=== PATIENT | female | born 1990 | race Two or more races ===

== ENCOUNTER 2017-10-24 06:21 | Inpatient (IN) | payer OTHER ==
[~2017-10-24] VITALS: Ht 152.4 cm; Wt 68.6 kg
[2017-10-24] MEDS ORDERED: LACTATED RINGERS 1,000 ML IV SCH (06:27)
[2017-10-24] MEDS ORDERED: OXYTOCIN 30U/ 0.9% NaCL 500ML 500 ML IV ONE (06:27)
[2017-10-24] MEDS ORDERED: D5%-LACTATED RINGERS 1,000 ML IV SCH (06:27)
[2017-10-24] MEDS ORDERED: TERBUTALINE 1 MG/ML, 1ML IVPush PRN ×2 (06:30)
[2017-10-24] MEDS ORDERED: TERBUTALINE 1 MG/ML, 1ML SQ PRN (06:30)
[2017-10-24] MEDS ORDERED: CALCIUM CARBONATE 500 MG TAB.CHEW PO PRN ×2 (06:30→08:30)
[2017-10-24] MEDS ORDERED: FENTANYL PF 100 MCG/2ML IVPush PRN (06:30)
[2017-10-24] MEDS ORDERED: ONDANSETRON 2MG/ML, 2ML IVPush PRN (06:30)
[2017-10-24] MEDS ORDERED: FENTANYL PF 100 MCG/2ML IV PRN (06:30)
[2017-10-24] MEDS ORDERED: NEWBORN KIT ONE (06:32)
[2017-10-24] MEDS ORDERED: MISOPROSTOL 200 MCG TABLET ONE (06:32)
[2017-10-24] MEDS ORDERED: LIDOCAINE 1%, 20ML ONE (06:32)
[2017-10-24] MEDS ORDERED: OXYTOCIN 30U/ 0.9% NaCL 500ML 500 ML ONE (06:32)
[2017-10-24] MEDS ORDERED: FENTANYL PF 100 MCG/2ML ONE (06:47)
[2017-10-24 07:09] LABS: BASOPHILS # (AUTO) 0.05 x10^3/uL (0-0.1); BASOPHILS % (AUTO) 0 % (0-1); EOSINOPHILS # (AUTO) 0.05 x10^3/uL (0-0.4); EOSINOPHILS % (AUTO) 0 % (1-7); LYMPHOCYTES # (AUTO) 3.01 x10^3/uL (1-3.4); LYMPHOCYTES % (AUTO) 25 % (22-44); MD NO; MEAN CORPUSCULAR HGB CONC 34.1 g/dL (32.4-35.8); MEAN CORPUSCULAR VOLUME 87.8 fL (80-100); MONOCYTES # (AUTO) 0.89 x10^3/uL (0.2-0.8); MONOCYTES % (AUTO) 8 % (2-9); NEUTROPHILS # (AUTO) 7.86 x10^3/uL (1.8-6.8); NEUTROPHILS % (AUTO) 66 % (42-75); PLATELET COUNT 208 x10^3/uL (130-400); RED BLOOD COUNT 4.74 x10^6/uL (3.82-5.3); RED CELL DISTRIBUTION WIDTH 13.7 % (9.6-15.2)
[2017-10-24] MEDS ORDERED: LIDOCAINE-MPF 2% ,5ML ONE (07:28)
[2017-10-24] MEDS ORDERED: FENTANYL/BUPIV./NS/PF 250 ML EPIDCONT ONE (07:28)
[2017-10-24] MEDS ORDERED: FENTANYL/BUPIV./NS/PF 250 ML EPIDCONT SCH (07:59)
[2017-10-24] MEDS ORDERED: LACTATED RINGERS 1,000 ML IVBOLUS PRN (08:00)
[2017-10-24] MEDS ORDERED: EPHEDRINE 50 MG/ML, 1ML IVPush PRN (08:00)
[2017-10-24] MEDS ORDERED: NALOXONE 0.4 MG/ML, 1ML IVPush PRN (08:00)
[2017-10-24] MEDS: OXYTOCIN 30U/ 0.9% NaCL 500ML 500 ML IV SCH ×2 (08:21→18:21)
[2017-10-24] MEDS ORDERED: CARBOPROST TROMETHAMINE 250 MCG/ML, 1ML IM PRN (08:30)
[2017-10-24] MEDS ORDERED: MISOPROSTOL 200 MCG TABLET PR PRN (08:30)
[2017-10-24] MEDS ORDERED: ONDANSETRON 2MG/ML, 2ML IV PRN (08:30)
[2017-10-24] MEDS ORDERED: METHYLERGONOVINE 0.2 MG/ML IM PRN (08:30)
[2017-10-24] MEDS ORDERED: RHOGAM FROM BLOOD BANK 1 NOTE EA IM/IV ONE (08:30)
[2017-10-24] MEDS ORDERED: ACETAMINOPHEN 325 MG TABLET PO PRN (08:30)
[2017-10-24] MEDS ORDERED: HYDROcodone/APAP 5/325 TABLET PO PRN ×2 (08:30)
[2017-10-24] MEDS: LACTATED RINGERS 1,000 ML IV SCH ×2 (09:00→17:00)
[2017-10-24] MEDS: PRENATAL VIT/IRON/FA 1 EACH TABLET PO SCH (09:00)
[2017-10-24 10:15] VITALS: BP 121/80
[2017-10-24] MEDS: IBUPROFEN 600 MG TABLET PO PRN ×2 (12:21→20:03)
[2017-10-24 13:38] VITALS: BP 121/72
[2017-10-24 16:16] LABS: BASOPHILS # (AUTO) 0.09 x10^3/uL (0-0.1); BASOPHILS % (AUTO) 1 % (0-1); EOSINOPHILS # (AUTO) 0.01 x10^3/uL (0-0.4); EOSINOPHILS % (AUTO) 0 % (1-7); LYMPHOCYTES # (AUTO) 1.82 x10^3/uL (1-3.4); LYMPHOCYTES % (AUTO) 11 % (22-44); MD NO; MEAN CORPUSCULAR HGB CONC 33.8 g/dL (32.4-35.8); MEAN CORPUSCULAR VOLUME 88.9 fL (80-100); MONOCYTES # (AUTO) 0.97 x10^3/uL (0.2-0.8); MONOCYTES % (AUTO) 6 % (2-9); NEUTROPHILS # (AUTO) 13.41 x10^3/uL (1.8-6.8); NEUTROPHILS % (AUTO) 82 % (42-75); PLATELET COUNT 201 x10^3/uL (130-400); RED BLOOD COUNT 4.42 x10^6/uL (3.82-5.3); RED CELL DISTRIBUTION WIDTH 13.6 % (9.6-15.2)
[2017-10-24 17:50] VITALS: BP 130/93
[2017-10-24 20:00] VITALS: BP 118/84
[2017-10-24] MEDS: DOCUSATE 100 MG CAPSULE PO PRN (20:03)
[2017-10-25 00:01] VITALS: BP 106/67
[2017-10-25] MEDS: LACTATED RINGERS 1,000 ML IV SCH ×2 (01:00→02:16)
[2017-10-25] MEDS: IBUPROFEN 600 MG TABLET PO PRN ×2 (02:20→07:54)
[2017-10-25] MEDS: OXYTOCIN 30U/ 0.9% NaCL 500ML 500 ML IV SCH ×2 (04:21→05:50)
[2017-10-25 06:45] VITALS: BP 117/84
[2017-10-25] MEDS: DOCUSATE 100 MG CAPSULE PO PRN (07:54)
[2017-10-25] MEDS: PRENATAL VIT/IRON/FA 1 EACH TABLET PO SCH (07:54)
[2017-10-25] MEDS ORDERED: IBUP-1222 PO (10:14)
[2017-10-25] MEDS ORDERED: SENN-1 PO (10:15)
== END 2017-10-25 10:50 | disposition home or self-care (01) | DRG 775 ==
LOC: LDOP 06:21 → LDIP 06:29 → 2NW 10:22
PROVIDERS: ADMIT Obstetrics & Gynecology; ATTEND Obstetrics & Gynecology
PROC: 10E0XZZ Delivery of Products of Conception, External Approach (ICD-10-PCS; principal; 2017-10-24)
PROC: 3E0R3BZ Introduction of Anesthetic Agent into Spinal Canal, Percutaneous Approach (ICD-10-PCS; 2017-10-24)
PROC: 00HU33Z Insertion of Infusion Device into Spinal Canal, Percutaneous Approach (ICD-10-PCS; 2017-10-24)
PROC: 30233S1 Transfusion of Nonautologous Globulin into Peripheral Vein, Percutaneous Approach (ICD-10-PCS; 2017-10-24)
DX: O69.1XX0 Labor and delivery complicated by cord around neck, with compression, not applicable or unspecified (principal); O77.0 Labor and delivery complicated by meconium in amniotic fluid; Z37.0 Single live birth; Z3A.40 40 weeks gestation of pregnancy
CPT/HCPCS: 36415; 82803; 85025; 85461; 86850; 86870; 86900; 86922; 86923; J2790; J3010; J7120

== ENCOUNTER 2019-10-05 20:22 | Outpatient (CLI) | payer BC ==
[~2019-10-05 20:22] MED LIST: IBUP-1222 PO; SENN-92 PO
[2019-10-05 21:22] LABS: MICROSCOPIC INDICATED
== END 2019-10-05 23:45 | disposition home or self-care (01) ==
LOC: LDOP 20:22 → LDIP 22:00 → UNDOADMOB 22:00 → UNDODISOB 23:45
PROVIDERS: ATTEND Obstetrics & Gynecology
DX: Z34.92 Encounter for supervision of normal pregnancy, unspecified, second trimester (principal); Z3A.26 26 weeks gestation of pregnancy
CPT/HCPCS: 36415; 76815; 81001; 85460; 87086; 99211; G0378; G0463

== ENCOUNTER 2019-12-18 01:34 | Inpatient (IN) | payer BC ==
[~2019-12-18] VITALS: Ht 165.1 cm; Wt 70.0 kg
[2019-12-18 02:13] LABS: ALANINE AMINOTRANSFERASE 126 U/L (12-78); ALBUMIN 2.6 g/dL (3.4-5.0); ANION GAP 10 mmol/L (5-15); BILIRUBIN, DIRECT 0.2 mg/dL (0.1-0.2); CALCIUM 8.8 mg/dL (8.5-10.1); CHLORIDE 111 mmol/L (98-107); CREATININE 0.95 mg/dL (0.55-1.02)
[2019-12-18 02:14] LABS: BASOPHILS # (AUTO) 0.04 x10^3/uL (0-0.1); BASOPHILS % (AUTO) 0 % (0-1); EOSINOPHILS # (AUTO) 0.06 x10^3/uL (0-0.4); EOSINOPHILS % (AUTO) 1 % (1-7); LYMPHOCYTES # (AUTO) 2.15 x10^3/uL (1-3.4); LYMPHOCYTES % (AUTO) 16 % (22-44); MD SCAN; MEAN CORPUSCULAR HEMOGLOBIN 30.1 pg (27.0-34.8); MEAN CORPUSCULAR HGB CONC 34.5 g/dL (32.4-35.8); MEAN CORPUSCULAR VOLUME 87.4 fL (80-100); MEAN PLATELET VOLUME 10.1 fL (7.4-10.4); MONOCYTES % (AUTO) 6 % (2-9); NEUTROPHILS # (AUTO) 10.01 x10^3/uL (1.8-6.8); NEUTROPHILS % (AUTO) 77 % (42-75); PLATELET COUNT 61 x10^3/uL (130-400); RED BLOOD COUNT 4.56 x10^6/uL (3.82-5.3); RED CELL DISTRIBUTION WIDTH 13.9 % (9.6-15.2)
[2019-12-18 02:15] LABS: ALKALINE PHOSPHATASE 223 U/L (45-117); BILIRUBIN,TOTAL 0.5 mg/dL (0.2-1.0); TOTAL PROTEIN 6.8 g/dL (6.4-8.2)
[2019-12-18] MEDS ORDERED: LABETALOL 5MG/ML, 20ML ONE (02:18)
[2019-12-18] MEDS ORDERED: LACTATED RINGERS 1,000 ML IV SCH ×2 (02:28→19:00)
[2019-12-18] MEDS ORDERED: OXYTOCIN 30U/ 0.9% NaCL 500ML 500 ML IV ONE (02:28)
[2019-12-18] MEDS ORDERED: D5%-LACTATED RINGERS 1,000 ML IV SCH (02:28)
[2019-12-18] MEDS ORDERED: ONDANSETRON 2MG/ML, 2ML IVPush PRN (02:30)
[2019-12-18] MEDS ORDERED: LABETALOL 200 MG TABLET PO SCH (02:30)
[2019-12-18] MEDS ORDERED: LABETALOL 5MG/ML, 20ML IVPush ONE (02:30)
[2019-12-18] MEDS ORDERED: CALCIUM CARBONATE 500 MG TAB.CHEW PO PRN ×2 (02:30→16:00)
[2019-12-18] MEDS ORDERED: FENTANYL PF 100 MCG/2ML IVPush PRN (02:30)
[2019-12-18] MEDS ORDERED: TERBUTALINE 1 MG/ML, 1ML IVPush PRN (02:30)
[2019-12-18] MEDS ORDERED: FENTANYL PF 100 MCG/2ML IV PRN (02:30)
[2019-12-18] MEDS ORDERED: TERBUTALINE 1 MG/ML, 1ML SQ PRN (02:30)
[2019-12-18] MEDS ORDERED: NEWBORN KIT ONE (02:37)
[2019-12-18] MEDS ORDERED: MAGNESIUM SULF. PMX 20GM/500ML 500 ML IV ONE ×2 (02:45→11:20)
[2019-12-18] MEDS ORDERED: MAGNESIUM SULFATE PMX 4GM/100M 100 ML ONE (02:45)
[2019-12-18] MEDS ORDERED: hydrALAzine 20 MG/ML, 1ML ONE (02:45)
[2019-12-18] MEDS ORDERED: OXYTOCIN 30U/ 0.9% NaCL 500ML 500 ML ONE ×2 (02:52→11:50)
[2019-12-18] MEDS ORDERED: OXYTOCIN 30U/ 0.9% NaCL 500ML 500 ML IV PRN (02:52)
[2019-12-18] MEDS ORDERED: LABETALOL 5MG/ML 40ML VIAL IVPush ONE (03:00)
[2019-12-18] MEDS ORDERED: hydrALAzine 20 MG/ML, 1ML IVPush ONE ×3 (03:00→14:30)
[2019-12-18] MEDS ORDERED: MAGNESIUM SULFATE PMX 4GM/100M 100 ML IVPB ONE (03:00)
[2019-12-18] MEDS ORDERED: NALOXONE 0.4 MG/ML, 1ML IVPush PRN (03:00)
[2019-12-18] MEDS ORDERED: REMIFENTANIL 3 MG in SODIUM CHLORIDE 0.9% 30 ML IV PRN (03:00)
[2019-12-18] MEDS: MAGNESIUM SULF. PMX 20GM/500ML 500 ML IV SCH ×2 (03:19→16:19)
[2019-12-18] MEDS ORDERED: ACETAMINOPHEN 325 MG TABLET ONE ×2 (04:41→11:08)
[2019-12-18] MEDS: ACETAMINOPHEN 325 MG TABLET PO PRN ×2 (04:49→11:10)
[2019-12-18 05:22] LABS: MICROSCOPIC INDICATED
[2019-12-18 05:25] LABS: CREATININE,URINE RANDOM 82.2 mg/dL
[2019-12-18] MEDS: REMIFENTANIL 3 MG/30 ML PCA IV PRN ×3 (07:30→21:19)
[2019-12-18] MEDS ORDERED: MISOPROSTOL 200 MCG TABLET PR PRN ×2 (08:30→16:00)
[2019-12-18] MEDS ORDERED: SODIUM CHLORIDE 0.9% 1,000 ML IV SCH (08:30)
[2019-12-18] MEDS ORDERED: TRANEXAMIC ACID 1,000 MG in SODIUM CHLORIDE 0.9% 100 ML IVPB ONE ×2 (08:30→16:00)
[2019-12-18 11:31] LABS: MEAN CORPUSCULAR VOLUME 88.4 fL (80-100); MEAN PLATELET VOLUME 9.2 fL (7.4-10.4); RED BLOOD COUNT 4.77 x10^6/uL (3.82-5.3); RED CELL DISTRIBUTION WIDTH 14.1 % (9.6-15.2)
[2019-12-18 11:32] LABS: PLATELET COUNT 45 x10^3/uL (130-400)
[2019-12-18 11:34] LABS: BASOPHILS # (AUTO) 0.01 x10^3/uL (0-0.1); BASOPHILS % (AUTO) 0 % (0-1); EOSINOPHILS # (AUTO) 0.02 x10^3/uL (0-0.4); EOSINOPHILS % (AUTO) 0 % (1-7); LYMPHOCYTES # (AUTO) 1.54 x10^3/uL (1-3.4); LYMPHOCYTES % (AUTO) 11 % (22-44); MD SCAN; MONOCYTES # (AUTO) 0.75 x10^3/uL (0.2-0.8); MONOCYTES % (AUTO) 6 % (2-9); NEUTROPHILS # (AUTO) 11.26 x10^3/uL (1.8-6.8); NEUTROPHILS % (AUTO) 83 % (42-75)
[2019-12-18] MEDS ORDERED: LABETALOL 5MG/ML, 20ML IVPush PRN ×3 (14:30)
[2019-12-18] MEDS ORDERED: OXYTOCIN 30U/ 0.9% NaCL 500ML 500 ML IV SCH (15:37)
[2019-12-18] MEDS ORDERED: ONDANSETRON 2MG/ML, 2ML IV PRN (16:00)
[2019-12-18] MEDS ORDERED: RHOGAM FROM BLOOD BANK 1 NOTE EA IM/IV ONE (16:00)
[2019-12-18] MEDS ORDERED: CARBOPROST TROMETHAMINE 250 MCG/ML, 1ML IM PRN (16:00)
[2019-12-18] MEDS ORDERED: ACETAMINOPHEN 325 MG TABLET PO PRN ×2 (16:00)
[2019-12-18] MEDS ORDERED: DOCUSATE 100 MG CAPSULE PO PRN (16:00)
[2019-12-18] MEDS ORDERED: SIMETHICONE 80 MG CHEW TAB PO PRN (16:00)
[2019-12-18] MEDS ORDERED: HYDROcodone/APAP 5/325 TABLET PO PRN ×2 (16:00)
[2019-12-18] MEDS ORDERED: MISOPROSTOL 200 MCG TABLET ONE (18:08)
[2019-12-18] MEDS ORDERED: MAGNESIUM SULF. PMX 20GM/500ML 500 ML IV SCH (18:38)
[2019-12-18] MEDS ORDERED: IBUPROFEN 600 MG TABLET ONE (20:53)
[2019-12-18] MEDS ORDERED: HYDROcodone/APAP 5/325 TABLET ONE (20:54)
[2019-12-18] MEDS: CARBOPROST TROMETHAMINE 250 MCG/ML, 1ML IM PRN ×2 (21:09→21:10)
[2019-12-19] VITALS (10 sets, daily range): BP systolic 134–166; BP diastolic 85–101
[2019-12-19] MEDS ORDERED: IBUPROFEN 600 MG TABLET ONE ×3 (01:44→15:18)
[2019-12-19] MEDS: IBUPROFEN 600 MG TABLET PO PRN ×3 (01:50→15:20)
[2019-12-19] MEDS: CARBOPROST TROMETHAMINE 250 MCG/ML, 1ML IM PRN (02:17)
[2019-12-19] MEDS ORDERED: MAGNESIUM SULF. PMX 20GM/500ML 500 ML IV PRN (02:30)
[2019-12-19 06:21] LABS: MEAN CORPUSCULAR HEMOGLOBIN 29.9 pg (27.0-34.8); MEAN CORPUSCULAR HGB CONC 33.6 g/dL (32.4-35.8); MEAN CORPUSCULAR VOLUME 89.1 fL (80-100); RED BLOOD COUNT 3.85 x10^6/uL (3.82-5.3); RED CELL DISTRIBUTION WIDTH 14.1 % (9.6-15.2)
[2019-12-19 06:26] LABS: ANION GAP 8 mmol/L (5-15); CALCIUM 6.9 mg/dL (8.5-10.1); CHLORIDE 108 mmol/L (98-107)
[2019-12-19 06:29] LABS: ALANINE AMINOTRANSFERASE 177 U/L (12-78); ALKALINE PHOSPHATASE 167 U/L (45-117); BILIRUBIN,TOTAL 0.6 mg/dL (0.2-1.0); CREATININE 0.72 mg/dL (0.55-1.02); TOTAL PROTEIN 5.7 g/dL (6.4-8.2)
[2019-12-19 06:46] LABS: MEAN PLATELET VOLUME 8.6 fL (7.4-10.4)
[2019-12-19 06:47] LABS: BASOPHILS # (AUTO) 0.03 x10^3/uL (0-0.1); BASOPHILS % (AUTO) 0 % (0-1); EOSINOPHILS # (AUTO) 0.09 x10^3/uL (0-0.4); EOSINOPHILS % (AUTO) 1 % (1-7); LYMPHOCYTES # (AUTO) 2.04 x10^3/uL (1-3.4); LYMPHOCYTES % (AUTO) 15 % (22-44); MD SCAN; MONOCYTES # (AUTO) 1.02 x10^3/uL (0.2-0.8); MONOCYTES % (AUTO) 8 % (2-9); NEUTROPHILS # (AUTO) 10.07 x10^3/uL (1.8-6.8); NEUTROPHILS % (AUTO) 76 % (42-75)
[2019-12-19 06:52] LABS: PLATELET COUNT 46 x10^3/uL (130-400)
[2019-12-19] MEDS ORDERED: PRENATAL VIT/IRON/FA 1 EACH TABLET ONE (08:08)
[2019-12-19] MEDS: PRENATAL VIT/IRON/FA 1 EACH TABLET PO SCH (08:09)
[2019-12-19] MEDS: SODIUM CHLORIDE FLUSH 10ML SYR IVF SCH (21:00)
[2019-12-20 03:25] VITALS: BP 126/86
[2019-12-20 05:24] LABS: MEAN CORPUSCULAR HEMOGLOBIN 30.7 pg (27.0-34.8); MEAN CORPUSCULAR HGB CONC 34.1 g/dL (32.4-35.8); MEAN PLATELET VOLUME 9.8 fL (7.4-10.4); PLATELET COUNT 65 x10^3/uL (130-400); RED BLOOD COUNT 3.51 x10^6/uL (3.82-5.3); RED CELL DISTRIBUTION WIDTH 14.3 % (9.6-15.2)
[2019-12-20 05:25] LABS: ANION GAP 7 mmol/L (5-15); CALCIUM 8.1 mg/dL (8.5-10.1); CHLORIDE 110 mmol/L (98-107)
[2019-12-20 05:29] LABS: ALANINE AMINOTRANSFERASE 106 U/L (12-78); ALKALINE PHOSPHATASE 160 U/L (45-117); BILIRUBIN,TOTAL 0.2 mg/dL (0.2-1.0); CREATININE 0.75 mg/dL (0.55-1.02); TOTAL PROTEIN 5.6 g/dL (6.4-8.2)
[2019-12-20 05:54] LABS: BASOPHILS # (AUTO) 0.04 x10^3/uL (0-0.1); BASOPHILS % (AUTO) 0 % (0-1); EOSINOPHILS # (AUTO) 0.25 x10^3/uL (0-0.4); EOSINOPHILS % (AUTO) 2 % (1-7); LYMPHOCYTES # (AUTO) 2.98 x10^3/uL (1-3.4); LYMPHOCYTES % (AUTO) 25 % (22-44); MD SCAN; MONOCYTES # (AUTO) 0.75 x10^3/uL (0.2-0.8); MONOCYTES % (AUTO) 6 % (2-9); NEUTROPHILS # (AUTO) 7.93 x10^3/uL (1.8-6.8); NEUTROPHILS % (AUTO) 66 % (42-75)
[2019-12-20 07:35] VITALS: BP 136/89
[2019-12-20] MEDS: PRENATAL VIT/IRON/FA 1 EACH TABLET PO SCH (07:38)
[2019-12-20] MEDS: IBUPROFEN 600 MG TABLET PO PRN ×2 (07:38→14:29)
[2019-12-20] MEDS: SODIUM CHLORIDE FLUSH 10ML SYR IVF SCH (10:15)
[2019-12-20 11:58] VITALS: BP 123/87
== END 2019-12-20 14:56 | disposition home or self-care (01) | DRG 807 ==
LOC: LDOP 01:34 → LDIP 02:29 → 2NE 17:45 → 2NW 12-19 16:46
PROVIDERS: ADMIT Obstetrics & Gynecology; ATTEND Obstetrics & Gynecology
PROC: 10E0XZZ Delivery of Products of Conception, External Approach (ICD-10-PCS; principal; 2019-12-18)
PROC: 10907ZC Drainage of Amniotic Fluid, Therapeutic from Products of Conception, Via Natural or Artificial Opening (ICD-10-PCS; 2019-12-18)
PROC: 3E0234Z Introduction of Serum, Toxoid and Vaccine into Muscle, Percutaneous Approach (ICD-10-PCS; 2019-12-19)
DX: O69.81X0 Labor and delivery complicated by cord around neck, without compression, not applicable or unspecified (principal); Z37.0 Single live birth; Z3A.36 36 weeks gestation of pregnancy; Z80.3 Family history of malignant neoplasm of breast; O14.24 HELLP syndrome, complicating childbirth
CPT/HCPCS: 36415; 80053; 81001; 82248; 82570; 82803; 83735; 84156; 84550; 85025; 85461; 86592; 86850; 86900; 86923; 87086; G0378; J2790; J2590; J3475; J7030; J7120